=== PATIENT | male | born 1950 | race Caucasian/White ===

== ENCOUNTER 2019-11-02 07:17 | Outpatient (CLI) | payer MEDICARE, SELFPAY ==
[2019-11-02 07:32] LABS: Basophils Absolute Auto 0.05 K/mm3 (0.00-0.10); Basophils Percent Auto 0.6 % (0.0-1.0); Eosinophils Absolute Auto 0.32 K/mm3 (0.02-0.50); Eosinophils Percent Auto 3.9 % (1.0-6.0); Hematocrit 43.8 % (37.0-46.0); Hemoglobin 15.1 g/dL (12.4-15.3); Immature Granulocyte Absolute 0.02 K/mm3 (0.00-0.00); Immature Granulocyte Percent A 0.2 % (0.0-0.0); Lymphocytes Absolute Auto 2.81 K/mm3 (1.10-4.50); Lymphocytes Percent Auto 34.6 % (18.0-42.0); Mean Corpuscular HGB Conc 34.5 g/dL (32.0-36.0); Mean Corpuscular Hemoglobin 32.9 pg (27.0-31.0); Mean Corpuscular Volume 95.4 fL (78.0-102.0); Mean Platelet Volume 11.2 fl (8.7-11.0); Monocytes Absolute Auto 0.78 K/mm3 (0.10-0.90); Monocytes Percent Auto 9.6 % (2.0-11.0); Neutrophils Absolute Auto 4.1 K/mm3 (1.7-7.2); Neutrophils Percent Auto 51.1 % (50.0-70.0); Platelet Count Result 156 K/mm3 (150-420); Red Blood Count 4.59 M/mm3 (4.70-6.10); Red Cell Distribution Width 13.1 % (11.6-14.4); White Blood Count 8.1 K/mm3 (4.8-10.8)
[2019-11-02 08:54] LABS: Alanine Aminotransferase 24 U/L (16-63); Albumin Level 3.9 g/dL (3.4-5.0); Alkaline Phosphatase 50 U/L (46-116); Anion Gap 13.3 mmol/L (7-16); Aspartate Amino Transferase 16 U/L (15-37); Bilirubin,Total 0.3 mg/dL (0.00-1.00); Blood Urea Nitrogen 16 mg/dL (7-18); Calcium 8.7 mg/dL (8.5-10.1); Carbon Dioxide 28 mmol/L (21-32); Chloride 104 mmol/L (98-108); Estimated Glomerular Filt Rate > 60; Glucose 103 mg/dL (70-99); Osmolality Calculated 293 mOsm/kg (285-295); Potassium 4.3 mmol/L (3.5-5.1); Sodium 141 mmol/L (136-145); Thyroid Stimulating Hormone 4.67 uIU/mL (0.36-3.74); Total Protein 7.1 g/dL (6.4-8.2)
[2019-11-02 15:04] LABS: Free T4 Free Thyroxine 1.02 ng/dL (0.76-1.46)
[2019-11-05 04:05] LABS: FSH 8.3 mIU/mL (1.6-8.0); LH 1.8 mIU/mL (1.6-15.2)
== END 2019-11-02 07:18 | disposition home or self-care (01) ==
LOC: CHSLAB 07:20
PROVIDERS: PCP Family Medicine; Visit Provider Family Medicine
DX: N64.4 Mastodynia (principal); N62 Hypertrophy of breast; E03.9 Hypothyroidism, unspecified
CPT/HCPCS: 36415; 80053; 82040; 82670; 83001; 83002; 84270; 84403; 84439; 84443; 84702; 85025

== ENCOUNTER 2019-11-20 09:04 | Outpatient (CLI) | payer MEDICARE, SELFPAY | END 2019-11-20 09:05 | disposition home or self-care (01) | LOC: CHSIMG 09:06 | PROVIDERS: PCP Family Medicine; Visit Provider Family Medicine | DX: Z53.8 Procedure and treatment not carried out for other reasons (principal) | CPT/HCPCS: 99199 ==

== ENCOUNTER 2019-11-25 08:06 | Outpatient (CLI) | payer MEDICARE, SELFPAY ==
--- NOTE | ~2019-11-25 | US_ITS ---
EXAMINATION: US breast LT complete, US axilla LT DATE: 11/25/2019 09:04 (accession [id number]), 11/25/2019 09:03 (accession [id number]) INDICATION: Nipple pain TECHNIQUE: Grayscale and Doppler ultrasound images of the left breast and axilla were obtained. COMPARISON: 09/24/2019 diagnostic left digital mammogram FINDINGS: In the subareolar area of the left breast there is a 3.7 x 2.4 x 4.0 mm circumscribed mass. No internal vascularity is noted. No shadowing is evident. Ultrasound-guided biopsy is recommended. No left axillary mass lesion is evident.. IMPRESSION: BI-RADS Category 4: Suspicious abnormality; biopsy should be considered Recommendation: Ultrasound-guided biopsy of left subareolar [address] Vázquez telephoned the [facility] on 11/25/2019 at 0925 hours. The clinic was closed. Dr. Vázquez le ft a voicemail message for Dr. Vogt's nurse with the information concerning the 4 mm subareolar left breast mass and the recommendation for ultrasound-guided biopsy. Reviewed, dictated and finalized at [facility] Reviewed, dictated and finalized at [facility]. [employer] IMPRESSION: BI-RADS Category 4: Suspicious abnormality; biopsy should be consi dered Recommendation: Ultrasound-guided biopsy of left subareolar [address] Vázquez telephoned the [facility] on 11/25/2019 at 0925 hours. The clinic w as closed. Dr. Vázquez left a voicemail message for Dr. Vogt's nurse with the information concerning the 4 mm subareolar left breast mass and the recommenda tion for ultrasound-guided biopsy.
== END 2019-11-25 08:07 | disposition home or self-care (01) ==
LOC: CHSIMG 08:08
PROVIDERS: PCP Family Medicine; Visit Provider Family Medicine
DX: N64.4 Mastodynia (principal); M79.622 Pain in left upper arm
CPT/HCPCS: 76641; 76882

== ENCOUNTER 2020-10-21 08:07 | Outpatient (CLI) | payer MEDICARE, SELFPAY ==
[2020-10-21 08:26] LABS: Basophils Absolute Auto 0.04 K/mm3 (0.00-0.10); Basophils Percent Auto 0.5 % (0.0-1.0); Eosinophils Absolute Auto 0.32 K/mm3 (0.02-0.50); Eosinophils Percent Auto 4.1 % (1.0-6.0); Hematocrit 44.7 % (37.0-46.0); Hemoglobin 14.9 g/dL (12.4-15.3); Immature Granulocyte Absolute 0.02 K/mm3 (0.00-0.00); Immature Granulocyte Percent A 0.3 % (0.0-0.0); Lymphocytes Absolute Auto 2.59 K/mm3 (1.10-4.50); Lymphocytes Percent Auto 32.8 % (18.0-42.0); Mean Corpuscular HGB Conc 33.3 g/dL (32.0-36.0); Mean Corpuscular Hemoglobin 33.2 pg (27.0-31.0); Mean Corpuscular Volume 99.6 fL (78.0-102.0); Mean Platelet Volume 11.2 fl (8.7-11.0); Monocytes Absolute Auto 0.84 K/mm3 (0.10-0.90); Monocytes Percent Auto 10.6 % (2.0-11.0); Neutrophils Absolute Auto 4.1 K/mm3 (1.7-7.2); Neutrophils Percent Auto 51.7 % (50.0-70.0); Platelet Count Result 164 K/mm3 (150-420); Red Blood Count 4.49 M/mm3 (4.70-6.10); Red Cell Distribution Width 13.2 % (11.6-14.4); White Blood Count 7.9 K/mm3 (4.8-10.8)
[2020-10-21 10:01] LABS: Alanine Aminotransferase 25 U/L (16-63); Alkaline Phosphatase 52 U/L (46-116); Anion Gap 6 mmol/L (8-16); Aspartate Amino Transferase 11 U/L (15-37); Bilirubin,Total 0.4 mg/dL (0.00-1.00); Blood Urea Nitrogen 18 mg/dL (7-18); Calcium 8.8 mg/dL (8.5-10.1); Carbon Dioxide 33 mmol/L (21-32); Chloride 105 mmol/L (98-108); Cholesterol 148 mg/dL (0-200); Estimated Glomerular Filt Rate > 60; Glucose 100 mg/dL (70-99); HDL Direct 45 mg/dL (40-60); LDL Cholesterol Calculated 94 mg/dL (<130); Osmolality Calculated 299 mOsm/kg (285-295); Potassium 4.4 mmol/L (3.5-5.1); Sodium 144 mmol/L (136-145); Total Protein 7.4 g/dL (6.4-8.2); Triglycerides 47 mg/dL (0-150)
== END 2020-10-21 08:08 | disposition home or self-care (01) ==
LOC: CHSLAB 08:16
PROVIDERS: PCP Family Medicine; Visit Provider Family Medicine
DX: E78.2 Mixed hyperlipidemia (principal); K92.1 Melena; I10 Essential (primary) hypertension; Z13.29 Encounter for screening for other suspected endocrine disorder
CPT/HCPCS: 36415; 80053; 80061; 84443; 85025

== ENCOUNTER 2021-08-28 12:47 | Outpatient (CLI) | payer MEDICARE, SELFPAY ==
[2021-08-28 13:55] LABS: SARS-CoV-2 RNA PCR Positive (Negative)
== END 2021-08-28 12:48 | disposition home or self-care (01) ==
LOC: CHSLAB 12:50
PROVIDERS: PCP Family Medicine; Visit Provider Family Medicine
DX: U07.1 COVID-19 (principal); J00 Acute nasopharyngitis [common cold]
CPT/HCPCS: C9803; U0003; U0005

== ENCOUNTER 2021-08-29 14:06 | Outpatient (CLI) | payer MEDICARE, SELFPAY ==
--- NOTE | 2021-08-29 14:26 | PC.NURSE ---
Pt to room 227 amb. A&Ox3. Regeneron infusion explained. Pt signed consent. Oriented to room. Call rubin in reach. Patient has no complaints or concerns. Reminded to call with needs.
[2021-08-29 14:43] VITALS: BP 128/66; PULSE 60; RESP 20; TEMP 36.6; O2SAT 96
[2021-08-29] MEDS: diphenhydrAMINE HCl CAP 25 MG CAPSULE PO (14:46)
[2021-08-29] MEDS: ACETAMINOPHEN 325 MG TABLET 650 MG PO (14:46)
[2021-08-29] MEDS: FAMOTIDINE 20 MG TABLET PO (14:46)
--- NOTE | 2021-08-29 16:22 | PC.NURSE ---
Pt discharged to home amb without complaint.
== END 2021-08-29 14:07 | disposition home or self-care (01) ==
LOC: CHSLAB 14:11 → CHSTREATRM 14:14
PROVIDERS: PCP Family Medicine; Visit Provider Family Medicine
DX: U07.1 COVID-19 (principal)
CPT/HCPCS: A9270; J7050; M0243; Q0244

== ENCOUNTER 2021-12-29 12:25 | Outpatient (CLI) | payer MEDICARE, SELFPAY ==
--- NOTE | ~2021-12-29 | XR_ITS ---
EXAMINATION: XR abdomen obstructive series EXAM DATE: 12/29/2021 13:21 INDICATION: Generalized abdominal pain x 1 month. TECHNIQUE: Frontal upright projection of the upper abdomen, frontal projection of the lower abdomen f or interpretation. There is no prior study for comparison. FINDINGS: There is moderate amount of colonic stool and gas. No small bowel dilation, nonobstructiv e bowel gas pattern. Calcifications in the pelvis are believed to be phleboliths. There is no orga nomegaly suspected. There is moderate to severe lower lumbar spondylosis. Mild lumbar dextroscoliosi s. There is no free intraperitoneal air. The lung bases are clear. IMPRESSION: Moderate amount of colonic stool and gas. No obstruction. Reviewed, dictated and finalized at [facility].
== END 2021-12-29 12:26 | disposition home or self-care (01) ==
LOC: CHSIMG 12:28
PROVIDERS: PCP Family Medicine; Visit Provider Family Medicine
DX: R10.84 Generalized abdominal pain (principal)
CPT/HCPCS: 74019

== ENCOUNTER 2022-07-03 10:40 | Day surgery (SDC) | payer MEDICARE, SELFPAY ==
[2022-06-20 13:43] VITALS: BMI 31.6
--- NOTE | 2022-07-03 10:54 | WPDANESEPPF ---
Anes - Initial Pre Proc Eval Procedure: Operation Date: 07/03/22 13:30 Proposed Procedures p Esophagogastroduodenoscopy - Omar Ramos MD s Diagnostic Colonoscopy - Omar Ramos MD Date/Time: 07/03/22 10:54 Surgeon: Omar Ramos MD Pre Op Diagnosis: dysphagia and nausea, change in bowel habits Patient Data Age: 71 Gender: M Height: 1.78 m Weight: 100 kg Allergies Allergy/AdvReac Type Severity Reaction Status Date / Time No Known Allergies Allergy Verified 07/03/22 11:08 Home Medications Medication Instructions Recorded Confirmed Type latanoprost 0.005 % eye drops 1 drp EACH EYE DAILY 02/15/22 06/20/22 History (Xalatan) lovastatin 10 mg tablet 10 mg PO DAILY 02/15/22 06/20/22 History timolol maleate 0.5 % eye drops 1 drp EACH EYE .prn 02/15/22 06/20/22 History sodium sul 1.479 gram-potas ch See Rx Instructions PO PER PKG DIR 03/07/22 Rx 0.188 gram-magnes sul 0.225 gram #24 tabs tablet (Sutab) Patient hx anesthesia problems: none Family hx anesthesia problems: none Results Review: All pre-operative results and documents have been reviewed as part of the pre-operative evaluation. [facility] Past Medical History Medical History Arthritis Basal cell carcinoma of skin Benign tumor of breast Fracture, ankle Glaucoma Hyperlipemia Obesity Social History Social History Smoking packs per day: 2 Smoking cigarettes per day: 40.0 Years smoked: 50 Smoking pack-years: 100.00 Smoking status: Current every day smoker Tobacco type: cigarettes Alcohol intake: current Drinks per week: 2 Substance use: never Substance use type: does not use Living arrangements: with family Spiritual care concerns: No Anes - Eval Final PreProcedure Day of Procedure 07/03/22 10:54 Patient weight: obese Heart: regular rate and rhythm Lungs: decreased breath sounds Airway: Mallampati scale class II Neurological: alert and oriented Last oral intake: >/= 8 hours ASA classification: III Emergent: no Anesthetic plan: proceed Anesthesia type and monitoring: general GIVS and standard monitoring Results Review: All pre-operative results and documents have been reviewed as part of the pre-operative evaluation. Informed Consent: The patient's anesthetic plan and its attendant risks and benefits were discussed with the patient/family/POA. Questions were solicited and answers provided to the satisfaction of the patient/family/POA.
[2022-07-03 11:00] VITALS: BP 167/77; PULSE 62; RESP 16; TEMP 37.2; O2SAT 98
[2022-07-03 11:10] VITALS: BMI 31.9
[2022-07-03] MEDS: LACTATED RINGERS 1,000 ML 150 ML IV CONT (11:13)
--- NOTE | 2022-07-03 11:32 | PM.HPGS ---
History of Present Illness History of Present Illness Consent: Risks, benefits, and alternatives have been discussed and questions answered. Patient agrees to proceed with procedure. Chief complaint: dysphagia and nausea, change in bowel habits Narrative: Rikki Fisher is a 71 year old male with constipation for few months, last colonoscopy 2013, also intermittent dysphagia and gerd but currently not using ppi Review of Systems Constitutional: Constitutional: Denies headache(s) and Denies weakness Eyes: Eyes: Denies blurry vision ENT: Reports Normal hearing present, Denies headache(s) and Denies neck pain Cardiovascular: Cardiovascular: Denies chest pain and Denies dyspnea Respiratory: Respiratory: Denies dyspnea Gastrointestinal: Gastrointestinal: Reports no additional gastrointestinal complaints Genitourinary: Genitourinary: Denies dysuria Musculoskeletal: Musculoskeletal: Denies neck pain Integumentary/Breasts: Skin/Breast: Denies dry skin Neurologic: Reports Normal hearing present, Denies headache(s) and Denies weakness Psychiatric: Psychiatric: Denies anxiety Endocrine: Endocrine: Denies change in body appearance Hematologic/Lymphatic: Hematologic/Lymphatic: Denies easy bleeding Allergic/Immunologic: Allergic/Immunologic: Denies urticaria PMFSH Past Medical History Medical History (Updated 07/03/22 @ 11:35 by Omar Ramos MD) Arthritis Basal cell carcinoma of skin Benign tumor of breast Constipation Fracture, ankle Glaucoma Hyperlipemia Obesity Social History Social History Smoking packs per day: 2 Smoking cigarettes per day: 40.0 Years smoked: 50 Smoking pack-years: 100.00 Smoking status: Current every day smoker Tobacco type: cigarettes Alcohol intake: current Drinks per week: 2 Substance use: never Substance use type: does not use Living arrangements: with family Spiritual care concerns: No Meds Home Medications and Allergies Home Medications Medication Instructions Recorded Confirmed Type latanoprost 0.005 % eye drops 1 drp EACH EYE DAILY 02/15/22 07/03/22 History (Xalatan) lovastatin 10 mg tablet 10 mg PO DAILY 02/15/22 07/03/22 History timolol maleate 0.5 % eye drops 1 drp EACH EYE .prn 02/15/22 07/03/22 History sodium sul 1.479 gram-potas ch See Rx Instructions PO PER PKG DIR 03/07/22 07/03/22 Rx 0.188 gram-magnes sul 0.225 gram #24 tabs tablet (Sutab) Allergies Allergy/AdvReac Type Severity Reaction Status Date / Time No Known Allergies Allergy Verified 07/03/22 11:08 Vital Signs Vital Signs - 24 hr 07/03/22 11:00 Temperature 98.9 F Pulse Rate 62 Respiratory Rate 16 Blood Pressure 167/77 H Pulse Oximetry 98 Oxygen Delivery Room Air Exam Const: General: comfortable and no acute distress HENMT: Face/Nose/Sinus: Normal nares present Eyes: General: appearance normal, both eyes and all related structures Neck: Neck: no JVD Resp: Auscultation: clear to auscultation bilaterally Cardio: Rate: regular rate Rhythm: regular rhythm GI: Inspection: non-distended GI Palp: Yes Soft to palpation Skin: General skin exam: normal color Neuro: General: gait normal Speech: normal speech Extrem: General: normal to inspection Psych: Mental Status: mental status grossly normal Assessment and Plan Assessment and plan (1) GERD (gastroesophageal reflux disease): Code(s): K21.9 - Gastro-esophageal reflux disease without esophagitis Status: Acute Assessment and Plan: egd with bx (2) Constipation: Code(s): K59.00 - Constipation, unspecified Status: Acute Assessment and Plan: colonoscopy
[2022-07-03 12:05] VITALS: BP 141/78; PULSE 57; RESP 14; O2SAT 98
[2022-07-03 12:10] VITALS: BP 143/70; PULSE 55; RESP 14; O2SAT 97
[2022-07-03 12:15] VITALS: BP 139/71; PULSE 58; RESP 14; O2SAT 99
--- NOTE | 2022-07-03 12:31 | WPDANESPN ---
Anes - Prog Note Post-Op Date/Time: 07/03/22 12:31 Cardiovascular status: normal Respiratory status: normal Airway patency: baseline Mental status: baseline Post-Op hydration status: normal Vital Signs: Last Vital Signs Temp 37.2 C 07/03/22 11:00 Pulse 58 L 07/03/22 12:15 Resp 14 07/03/22 12:15 BP 139/71 07/03/22 12:15 Pulse Ox 99 07/03/22 12:15 O2 Del Method Room Air 07/03/22 12:15 Pain Score (VAS): 0 I/O: Intake & Output 07/02/22 07/03/22 07/03/22 23:59 07:59 15:59 Intake Total 600 Balance 600 Patient Feedback: Patient satisfied with anesthetic care.
== END 2022-07-03 12:43 | disposition home or self-care (01) ==
PROVIDERS: PCP Family Medicine; Visit Provider Internal Medicine Gastroenterology
PROC: 0DJ08ZZ Inspection of Upper Intestinal Tract, Via Natural or Artificial Opening Endoscopic (ICD-10-PCS; CPT 43235; principal; 2022-07-03 13:30)
PROC: 0DJD8ZZ Inspection of Lower Intestinal Tract, Via Natural or Artificial Opening Endoscopic (ICD-10-PCS; CPT 45378; 2022-07-03 13:30)
DX: K21.9 Gastro-esophageal reflux disease without esophagitis (principal)
CPT/HCPCS: 45385; 43239

== ENCOUNTER 2022-07-03 13:00 | Outpatient (NON) | payer MEDICARE, SELFPAY | END 2022-07-03 13:01 | disposition home or self-care (01) | LOC: ANHLAB 07-04 08:07 | PROVIDERS: PCP Family Medicine; Visit Provider Internal Medicine Gastroenterology | DX: K21.9 Gastro-esophageal reflux disease without esophagitis (principal); K59.00 Constipation, unspecified | CPT/HCPCS: 88305 ==

== ENCOUNTER 2022-07-10 13:33 | Outpatient (CLI) | payer MEDICARE, SELFPAY | END 2022-07-10 13:34 | disposition home or self-care (01) | LOC: CHSLAB 13:34 | PROVIDERS: PCP Specialist; Visit Provider Specialist | DX: C44.329 Squamous cell carcinoma of skin of other parts of face (principal); C44.219 Basal cell carcinoma of skin of left ear and external auricular canal | CPT/HCPCS: 88305 ==

== ENCOUNTER 2023-02-11 13:58 | Outpatient (CLI) | payer MEDICARE, SELFPAY ==
--- NOTE | ~2023-02-11 | XR_ITS ---
EXAMINATION: XR chest 2V DATE: 02/11/2023 14:19 INDICATION: Acute cough. Congestion. TECHNIQUE: Frontal and lateral views of the chest were obtained on 3 radiographs. COMPARISON: Chest CT 01/05/2019 FINDINGS: There is mild atelectasis in left lower lung zone. No pleural effusion or pneumothorax. The heart size is normal. IMPRESSION: 1. Mild atelectasis in left lower lung zone. Reviewed, dictated and finalized at [facility].
== END 2023-02-11 13:59 | disposition home or self-care (01) ==
LOC: CHSIMG 14:00
PROVIDERS: PCP Family Medicine; Visit Provider Family Medicine
DX: R05.1 Acute cough (principal); J98.11 Atelectasis
CPT/HCPCS: 71046

== ENCOUNTER 2023-03-12 13:24 | Outpatient (CLI) | payer MEDICARE, SELFPAY | END 2023-03-12 13:25 | disposition home or self-care (01) | PROVIDERS: PCP Family Medicine; Visit Provider Specialist | DX: L73.9 Follicular disorder, unspecified (principal) | CPT/HCPCS: 87070; 87205 ==

== ENCOUNTER 2023-04-15 11:42 | Outpatient (CLI) | payer MEDICARE, SELFPAY ==
--- NOTE | ~2023-04-15 | XR_ITS ---
AP and oblique views of the right ribs Clinical History: Pain Findings: There is a minimally displaced fracture at the anterior right seventh rib. Lungs are clear, without focal consolidation or pleural effusion. Cardiomediastinal contour is within normal limits. Soft tissues are unremarkable. Impression: Minimally displaced fracture at the anterior right seventh rib. Reviewed, dictated and finalized at [facility]. Impression: Minimally displaced fracture at the anterior right seventh rib.
== END 2023-04-15 11:43 | disposition home or self-care (01) ==
LOC: CHSIMG 11:48
PROVIDERS: PCP Physician Assistant; Visit Provider Physician Assistant
DX: R07.81 Pleurodynia (principal); S22.31XA Fracture of one rib, right side, initial encounter for closed fracture
CPT/HCPCS: 71101

== ENCOUNTER 2024-06-23 16:23 | Outpatient (CLI) | payer MEDICARE, SELFPAY | END 2024-06-23 16:24 | disposition home or self-care (01) | PROVIDERS: PCP Physician Assistant; Visit Provider Specialist | DX: L57.0 Actinic keratosis (principal) | CPT/HCPCS: 88305 ==

== ENCOUNTER 2024-12-03 10:05 | Outpatient (CLI) | payer MEDICARE, SELFPAY ==
--- OUTSIDE RECORDS SUMMARY | 2024-12-03 11:40 | XMS_ITS | Data Portability ---
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 Plan of Treatment Reminders Order Date Submit Date Provider Last Modified By Organization Details Last Modified Time Details Appointments None recorded. Lab CBC 2024 025 [facility], [address] [facility], [facility], [place], [address], 5 09:15:58 CMP, serum or plasma 2024 025 [facility], [address] [facility], [facility], [place], [address], 5 09:15:54 lipid panel, serum 2024 025 [facility], [address] [facility], [facility], [place], [address], 5 09:15:53 HbA1c (hemoglobi n A1c), blood 2024 025 [facility] In-Office Order, Internal Use Only DO Not Attach Compendium DO Not Attach Compendium, Do Not Delete/merge, [id number] 5 13:25:29 PSA, total, serum or plasma 2024 025 [facility], [address] [facility], [facility], [place], [address], 5 09:15:57 drug screen, urine 2024 025 [facility] In-Office Order, Internal Use Only DO Not Attach Compendium DO Not Attach Compendium, Do Not Delete/merge, [id number] 5 13:51:22 PSA, total, serum or plasma 2022 023 [facility], [address] [facility], [address], [place], [address], 3 11:12:50 CBC 2022 023 [facility], [address] [facility], [facility], [place], [address], 3 06:14:44 CMP, serum or plasma 2022 023 [facility], [address] [facility], [facility], [place], [address], 3 06:14:43 lipid panel, serum 2022 023 [facility], [address] [facility], [facility], [place], [address], 3 06:14:42 HbA1c (hemoglobi n A1c), blood 2022 023 [facility] In-Office Order, Internal Use Only DO Not Attach Compendium DO Not Attach Compendium, Do Not Delete/merge, [id number] 3 15:10:[address] referral 2022 023 KAROL Torres MD, [address] [place], [address], 3 09:38:46 Procedures None recorded. Surgeries None recorded. Imaging electromyo gram + nerve conduction study 2023 024 [facility], [address] [place], [address], 4 10:19:27 XR, ribs, unilateral , w/ PA chest [address] [facility]), [address] [place], [address], 17:57:52 Medication Orders lovastatin 10 mg tablet 2024 025 [facility], [address] [place], [address], 5 12:30:08 omeprazole 20 mg capsule,de layed release 2024 025 [facility], [address] [place], [address], 5 12:30:08 naproxen 500 mg tablet 2022 023 [facility], [address] [place], [address], 12:12:22 Patient TargetsNo targets recorded. Patient Instructions Encounter Date Encounter Id Patient Instructions Last Modified By Organization Details Last Modified Time 02/20/2023 [id number] A healthy lifestyle: care instructions ey Not available 02/20/2023 14:49:48 lightheadedness or faintness: care instructions jney Not available 02/20/2023 14:49:48 01/15/2024 [id number] carpal tunnel syndrome: care instructions jnanney Not available 01/15/2024 11:55:18 carpal tunnel syndrome: exercises jnanney Not available 01/15/2024 11:55:18 11/09/2024 [id number] A healthy lifestyle: care [facility] Not available 11/09/2024 12:30:08 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 Referring Physician: Thien Arzate, Family Medicine, Encounter Date: 02/20/2023 Results Created Date Observation Date Name Description Value Unit Range Abnormal Flag Note LastModifiedBy Organization Detail LastModifiedTime 02/21/20 23 02/20/2023 LIPID PANEL cholesterol, total 166.7 mg/dL 140.0- 200.0 Not Available [facility] ([facility]) [address] [facility] [place], [address], 02/21/2023 06:14:42 02/21/20 23 02/20/2023 LIPID PANEL triglyceride s 81 mg/dL <=150 Not Available [facility] ([facility]) [address] [facility] [place], [address], 02/21/2023 06:14:42 02/21/20 23 02/20/2023 LIPID PANEL HDL cholesterol 44.6 mg/dL 40.0-1 00.0 Not Available [facility] ([facility]) [address] [facility] [place], [address], 02/21/2023 06:14:42 02/21/20 23 02/20/2023 LIPID PANEL VLDL cholesterol omaira 16.20 mg/dL 5.00-4 0.00 Not Available [facility] ([facility]) [address] [place], [address], 02/21/2023 06:14:42 02/21/20 23 02/20/2023 LIPID PANEL LDL chol calc ([facility]) 106.8 mg/dL 0.0-99 .0 above high normal Not Available [facility] ([facility]) [address] [place], [address], 02/21/2023 06:14:42 02/21/2002/20/2023 COMP. METAB OLIC PANEL (14) glucose 101 mg/dL 65-99 above high normal ANION GP 15.0 mmol/ L N OSMOL 279.0 mOsM/ L N REFER ENCE RANGE : 275.0 -301. 0 Not Available [facility] ([facility]) [address] [place], [address], 02/21/2023 06:14:42 02/21/20 23 02/20/2023 COMP. METAB OLIC PANEL (14) BUN 21 mg/dL 8-26 Not Available [facility] ([facility]) [address] [facility] [place], [address], 02/21/2023 06:14:42 02/21/20 23 02/20/2023 COMP. METAB OLIC PANEL (14) creatinine 0.88 mg/dL 0.50-1 .40 Not Available [facility] ([facility]) [address] [place], [address], 02/21/2023 06:14:42 02/21/20 23 02/20/2023 COMP. METAB OLIC PANEL (14) eGFR 91 mL/mi n/1.7 3 >=60 Not Available [facility] ([facility]) [address] [place], [address], 02/21/2023 06:14:42 02/21/20 23 02/20/2023 COMP. METAB OLIC PANEL (14) BUN/creatini ne ratio 23.8 Not Available [facility] ([facility]) [address] [place], [address], 02/21/2023 06:14:42 02/21/20 23 02/20/2023 COMP. METAB OLIC PANEL (14) sodium 138.0 mmol/ L 136.0- 144.0 Not Available [facility] ([facility]) [address] [place], [address], 02/21/2023 06:14:42 02/21/20 23 02/20/2023 COMP. METAB OLIC PANEL (14) potassium 4.6 mmol/ L 3.5-5. 3 Not Available [facility] ([facility]) [address] [place], [address], 02/21/2023 06:14:42 02/21/20 23 02/20/2023 COMP. METAB OLIC PANEL (14) chloride 104 mmol/ l 101-11 1 Not Available [facility] ([facility]) [address] [place], [address], 02/21/2023 06:14:42 02/21/20 23 02/20/2023 COMP. METAB OLIC PANEL (14) carbon dioxide, total 23.7 mmol/ L 21.0-3 2.0 Not Available [facility] ([place] [facility]) [address] [facility], [place], [address], 02/21/2023 06:14:42 02/21/20 23 02/20/2023 COMP. METAB OLIC PANEL (14) calcium 9.7 mg/dL 8.2-10 .0 Not Available [facility] ([place] [facility]) [address] [facility], [place], [address], 02/21/2023 06:14:42 02/21/20 23 02/20/2023 COMP. METAB OLIC PANEL (14) protein, total 7.0 g/dL 6.7-8. 2 Not Available [facility] ([place] [facility]) [address] [facility] [place], [address], 02/21/2023 06:14:42 02/21/20 23 02/20/2023 COMP. METAB OLIC PANEL (14) albumin 4.3 g/dL 3.5-5. 5 Not Available [facility] ([place] [facility]) [address] [facility], [place], [address], 02/21/2023 06:14:42 02/21/20 23 02/20/2023 COMP. METAB OLIC PANEL (14) globulin, total 2.7 g/dL 1.5-4. 5 Not Available [facility] ([place] [facility]) [address] [facility], [place], [address], 02/21/2023 06:14:42 02/21/20 23 02/20/2023 COMP. METAB OLIC PANEL (14) A/G ratio 1.7 Not Available [facility] ([place] [facility]) [address] [facility], [place], [address], 02/21/2023 06:14:42 02/21/20 23 02/20/2023 COMP. METAB OLIC PANEL (14) bilirubin, total 0.4 mg/dL 0.0-1. 2 Not Available [facility] ([facility]) [address] [place], [address], 02/21/2023 06:14:42 02/21/20 23 02/20/2023 COMP. METAB OLIC PANEL (14) alkaline phosphatase 62.4 IU/L 42.0-1 21.0 Not Available [facility] ([facility]) [address], [place], [address], 02/21/2023 06:14:42 02/21/20 23 02/20/2023 COMP. METAB OLIC PANEL (14) AST (SGOT) 18.4 U/L 10.0-4 2.0 Not Available [facility] ([facility]) [address], [place], [address], 02/21/2023 06:14:42 02/21/20 23 02/20/2023 COMP. METAB OLIC PANEL (14) ALT (SGPT) 17.0 U/L 10.0-6 0.0 Not Available [facility] ([facility]) [address] [facility], [place], [address], 02/21/2023 06:14:42 02/21/20 23 02/20/2023 CBC, PLATE LET, NO DIFFE RENTI AL WBC 9.0 K/uL 3.4-10 .8 Not Available [facility] ([facility]) [address] [facility] [place], [address], 02/21/2023 06:14:44 02/21/2002/20/2023 CBC, PLATE LET, NO DIFFE RENTI AL RBC 4.7 M/uL 4.5-6. 3 Not Available [facility] ([facility]) [address] [facility], [place], [address], 02/21/2023 06:14:44 02/21/2002/20/2023 CBC, PLATE LET, NO DIFFE RENTI AL hemoglobin 15.3 g/dL 13.5-1 7.5 Not Available [facility] ([facility]) [address] [facility], [place], [address], 02/21/2023 06:14:44 02/21/20 23 02/20/2023 CBC, PLATE LET, NO DIFFE RENTI AL hematocrit 46.4 % 40.0-5 2.0 Not Available [facility] ([facility]) [address] [facility], [place], [address], 02/21/2023 06:14:44 02/21/2002/20/2023 CBC, PLATE LET, NO DIFFE RENTI AL MCV 98 fL 80-95 above high normal Not Available [facility] ([facility]) [address] [facility], [place], [address], 02/21/2023 06:14:44 02/21/2002/20/2023 CBC, PLATE LET, NO DIFFE RENTI AL MCH 32 pg 27-32 Not Available [facility] ([facility]) [address] [place], [address], 02/21/2023 06:14:44 02/21/2002/20/2023 CBC, PLATE LET, NO DIFFE RENTI AL MCHC 33 g/dL 32-36 Not Available [facility] ([facility]) [address] [place], [address], 02/21/2023 06:14:44 02/21/2002/20/2023 CBC, PLATE LET, NO DIFFE RENTI AL RDW 13.1 % 11.5-1 4.5 Not Available [facility] ([facility]) [address] [place], [address], 02/21/2023 06:14:44 02/21/2002/20/2023 CBC, PLATE LET, NO DIFFE RENTI AL platelets 214 K/uL 155-37 9 MPV 12.1 FL 8.9-1 2.7 N Not Available [facility] ([facility]) [address] [facility], [place], [address], 02/21/2023 06:14:44 02/21/20 23 02/20/2023 CBC, PLATE LET, NO DIFFE RENTI AL NRBC 0 % Not Available [facility] ([facility]) [address] [facility], [place], [address], 02/21/2023 06:14:44 02/21/20 23 02/21/2023 CARDI OVASC ULAR REPOR T interpretati on Note Suppl lilli flores repor t is avail able. Not Available [facility] ([facility]) [address] [facility], [place], [address], 02/21/2023 06:14:43 02/21/2002/21/2023 CARDI OVASC ULAR REPOR T pdf . Not Available [facility] ([facility]) [address] [facility], [place], [address], 02/21/2023 06:14:43 02/21/2002/20/2023 HbA1c (hemo globi n A1c), blood HbA1c 5.7 Not Available In-Office Order Internal Use Only DO Not Attach Compendium DO Not Attach Compendium, Do Not Delete/merge, [id number] 02/20/2023 14:47:54 03/06/2003/07/2023 PROST ATE-S PECIF IC AG prostate specific Ag 1.9 NG/mL 0.0-4. 0 [facility] ECL[facility] metho dolog y. Accor ding to the Ameri can Urolo gical Assoc iatio n, Serum PSA shoul d decre ase and remai n at undet ectab le level s after radic al prost atect shazia. The AUA defin es bioch emica l recur rence as an initi al PSA value 0.2 ng/mL or great er follo wed by a subse quent confi rmato ry PSA value 0.2 ng/mL or great er. Value s obtai mario with diffe rent assay metho ds or kits canno t be used inter vitor abdalla . Resul ts canno t be inter prete d as absol tonawanda evide nce of the prese nce or absen ce of yusef burns . Not Available [facility] ([facility]) [address] [facility], [place], [address], 03/07/2023 11:12:50 11/09/19 25 11/10/2024 LIPID PANEL cholesterol, total 164 mg/dL 100-19 9 Not Available [address], [address], 11/10/2024 09:15:53 11/09/19 25 11/10/2024 LIPID PANEL triglyceride s 42 mg/dL 0-149 Not Available [address], [address], 11/10/2024 09:15:53 11/09/19 25 11/10/2024 LIPID PANEL HDL cholesterol 47 mg/dL >39 Not Available [address], [address], 11/10/2024 09:15:53 11/09/19 25 11/10/2024 LIPID PANEL VLDL cholesterol omaira 9 mg/dL 5-40 Not Available [address], [address], 11/10/2024 09:15:53 11/09/19 25 11/10/2024 LIPID PANEL LDL chol calc ([facility]) 108 mg/dL 0-99 above high normal Not Available [id number] [place], [address], 11/10/2024 09:15:53 11/09/19 25 11/10/2024 COMP. METAB OLIC PANEL (14) glucose 104 mg/dL 70-99 above high normal Not Available [address], [address], 11/10/2024 09:15:54 11/09/19 25 11/10/2024 COMP. METAB OLIC PANEL (14) BUN 19 mg/dL 8-27 Not Available [address], [address], 11/10/2024 09:15:54 11/09/19 25 11/10/2024 COMP. METAB OLIC PANEL (14) creatinine 0.93 mg/dL 0.76-1 .27 Not Available [address], [address], 11/10/2024 09:15:54 11/09/19 25 11/10/2024 COMP. METAB OLIC PANEL (14) eGFR 86 mL/mi n/1.7 3 >59 Not Available [address], [address], 11/10/2024 09:15:54 11/09/19 25 11/10/2024 COMP. METAB OLIC PANEL (14) BUN/creatini ne ratio 20 10-24 Not Available [address], [address], 11/10/2024 09:15:54 11/09/19 25 11/10/2024 COMP. METAB OLIC PANEL (14) sodium 139 mmol/ L 134-14 4 Not Available [address], [address], 11/10/2024 09:15:54 11/09/19 25 11/10/2024 COMP. METAB OLIC PANEL (14) potassium 4.8 mmol/ L 3.5-5. 2 Not Available [address], [address], 11/10/2024 09:15:54 11/09/19 25 11/10/2024 COMP. METAB OLIC PANEL (14) chloride 103 mmol/ L 96-106 Not Available [address], [address], 11/10/2024 09:15:54 11/09/19 25 11/10/2024 COMP. METAB OLIC PANEL (14) carbon dioxide, total 27 mmol/ L 20-29 Not Available [address], [address], 11/10/2024 09:15:54 11/09/19 25 11/10/2024 COMP. METAB OLIC PANEL (14) calcium 9.3 mg/dL 8.6-10 .2 Not Available [address], [address], 11/10/2024 09:15:54 11/09/19 25 11/10/2024 COMP. METAB OLIC PANEL (14) protein, total 6.8 g/dL 6.0-8. 5 Not Available [address], [address], 11/10/2024 09:15:54 11/09/19 25 11/10/2024 COMP. METAB OLIC PANEL (14) albumin 4.3 g/dL 3.8-4. 8 Not Available [address], [address], 11/10/2024 09:15:54 11/09/19 25 11/10/2024 COMP. METAB OLIC PANEL (14) globulin, total 2.5 g/dL 1.5-4. 5 Not Available [address], [address], 11/10/2024 09:15:54 11/09/19 25 11/10/2024 COMP. METAB OLIC PANEL (14) bilirubin, total 0.5 mg/dL 0.0-1. 2 Not Available [address], [address], 11/10/2024 09:15:54 11/09/19 25 11/10/2024 COMP. METAB OLIC PANEL (14) alkaline phosphatase 56 IU/L 44-121 Not Available [address], [address], 11/10/2024 09:15:54 11/09/19 25 11/10/2024 COMP. METAB OLIC PANEL (14) AST (SGOT) 18 IU/L 0-40 Not Available [address], [address], 11/10/2024 09:15:54 11/09/19 25 11/10/2024 COMP. METAB OLIC PANEL (14) ALT (SGPT) 17 IU/L 0-44 Not Available [address], [address], 11/10/2024 09:15:54 11/09/19 25 11/10/2024 CARDI OVASC ULAR REPOR T interpretati on Note Suppl lilli al repor t is avail able. Not Available [address], [address], 11/10/2024 09:15:56 11/09/19 25 11/10/2024 CARDI OVASC ULAR REPOR T pdf . Not Available [address], [address], 11/10/2024 09:15:56 11/09/19 25 11/10/2024 PROST ATE-S PECIF IC AG prostate specific Ag 1.7 NG/mL 0.0-4. 0 Rogelio ECLIA metho dolog y. Accor shakeel to the Ameri can Urolo gical Assoc iatio n, Serum PSA shoul d decre ase and remai n at undet ectab le level s after radic al prost atect shazia. The AUA defin es bioch emica l recur rence as an initi al PSA value 0.2 ng/mL or great er follo wed by a subse quent confi rmato ry PSA value 0.2 ng/mL or great er. Value s obtai mario with diffe rent assay metho ds or kits canno t be used inter adler eably . Resul ts canno t be inter prete d as absol tonawanda evide nce of the prese nce or absen ce of yusef burns se. Not Available [address], [address], 11/10/2024 09:15:56 11/09/1911/10/2024 CBC, PLATE LET, NO DIFFE RENTI AL WBC 7.7 x10e3 /uL 3.4-10 .8 Not Available [address], [address], 11/10/2024 09:15:58 11/09/1911/10/2024 CBC, PLATE LET, NO DIFFE RENTI AL RBC 4.55 x10e6 /uL 4.14-5 .80 Not Available [address], [address], 11/10/2024 09:15:58 11/09/1911/10/2024 CBC, PLATE LET, NO DIFFE RENTI AL hemoglobin 15.1 g/dL 13.0-1 7.7 Not Available [address], [address], 11/10/2024 09:15:58 11/09/1911/10/2024 CBC, PLATE LET, NO DIFFE RENTI AL hematocrit 44.1 % 37.5-5 1.0 Not Available [address], [address], 11/10/2024 09:15:58 11/09/19 25 11/10/2024 CBC, PLATE LET, NO DIFFE RENTI AL MCV 97 fL 79-97 Not Available [address], [address], 11/10/2024 09:15:58 11/09/19 25 11/10/2024 CBC, PLATE LET, NO DIFFE RENTI AL MCH 33.2 pg 26.6-3 3.0 above high normal Not Available [address], [address], 11/10/2024 09:15:58 11/09/1911/10/2024 CBC, PLATE LET, NO DIFFE RENTI AL MCHC 34.2 g/dL 31.5-3 5.7 Not Available [address], [address], 11/10/2024 09:15:58 11/09/19 25 11/10/2024 CBC, PLATE LET, NO DIFFE RENTI AL RDW 12.6 % 11.6-1 5.4 Not Available [address], [address], 11/10/2024 09:15:58 11/09/19 25 11/10/2024 CBC, PLATE LET, NO DIFFE RENTI AL platelets 169 x10e3 /uL 150-45 0 Not Available [address], [address], 11/10/2024 09:15:58 11/09/19 25 11/09/2024 drug scree n, urine Methamphetam ine Negati ve Not Available In-Office Order Internal Use Only DO Not Attach Compendium DO Not Attach Compendium, Do Not Delete/merge, [id number] 11/09/2024 12:30:07 11/09/19 25 11/09/2024 drug scree n, urine THC Positi ve Not Available In-Office Order Internal Use Only DO Not Attach Compendium DO Not Attach Compendium, Do Not Delete/merge, 11/09/2024 12:30:07 11/09/19 25 11/09/2024 drug scree n, urine Cocaine (Lara) Negati ve Not Available In-Office Order Internal Use Only DO Not Attach Compendium DO Not Attach Compendium, Do Not Delete/merge, 11/09/2024 12:30:07 11/09/19 25 11/09/2024 drug scree n, urine Benzodiazepi ne (Bzo) Negati ve Not Available In-Office Order Internal Use Only DO Not Attach Compendium DO Not Attach Compendium, Do Not Delete/merge, 11/09/2024 12:30:07 11/09/19 25 11/09/2024 drug scree n, urine Methadone (Mtd) Negati ve Not Available In-Office Order Internal Use Only DO Not Attach Compendium DO Not Attach Compendium, Do Not Delete/merge, 11/09/2024 12:30:07 11/09/19 25 11/09/2024 drug scree n, urine Buprenorphin e (Bup) Negati ve Not Available In-Office Order Internal Use Only DO Not Attach Compendium DO Not Attach Compendium, Do Not Delete/merge, 11/09/2024 12:30:07 11/09/19 25 11/09/2024 drug scree n, urine Oxycodone (Oxy) Negati ve Not Available In-Office Order Internal Use Only DO Not Attach Compendium DO Not Attach Compendium, Do Not Delete/merge, 11/09/2024 12:30:07 11/09/19 25 11/09/2024 drug scree n, urine Barbiturates (Bar) Negati ve Not Available In-Office Order Internal Use Only DO Not Attach Compendium DO Not Attach Compendium, Do Not Delete/merge, 11/09/2024 12:30:07 11/09/19 25 11/09/2024 drug scree n, urine MDMA (Ecstacy) Negati ve Not Available In-Office Order Internal Use Only DO Not Attach Compendium DO Not Attach Compendium, Do Not Delete/merge, 11/09/2024 12:30:07 11/09/19 25 11/09/2024 drug scree n, urine Amphetamines (Amp) Negati ve Not Available In-Office Order Internal Use Only DO Not Attach Compendium DO Not Attach Compendium, Do Not Delete/merge, 11/09/2024 12:30:07 11/09/19 25 11/09/2024 drug scree n, urine Opiates (opi) Negati ve Not Available In-Office Order Internal Use Only DO Not Attach Compendium DO Not Attach Compendium, Do Not Delete/merge, 11/09/2024 12:30:07 11/09/19 25 11/09/2024 drug scree n, urine Phencyclidin e (Pcp) Negati ve Not Available In-Office Order Internal Use Only DO Not Attach Compendium DO Not Attach Compendium, Do Not Delete/merge, 11/09/2024 12:30:07 11/09/19 25 11/09/2024 drug scree n, urine Tricyclic Antidepressa nts Invali d Not Available In-Office Order Internal Use Only DO Not Attach Compendium DO Not Attach Compendium, Do Not Delete/merge, 11/09/2024 12:30:07 11/09/19 25 11/09/2024 drug scree n, urine Fentanyl Negati ve Not Available In-Office Order Internal Use Only DO Not Attach Compendium DO Not Attach Compendium, Do Not Delete/merge, 11/09/2024 12:30:07 11/09/19 25 11/09/2024 HbA1c (hemo globi n A1c), blood HbA1c 5.8 Not Available In-Office Order Internal Use Only DO Not Attach Compendium DO Not Attach Compendium, Do Not Delete/merge, 11/09/2024 12:27:58 02/21/20 23 02/11/2023 XR, chest No observ ation [facility] ed[facility] [address] [facility], [place], [address], 02/20/2023 15:08:52 04/15/20 23 04/15/2023 XR, ribs, unila teral , w/ PA chest No observ ation record ed. [facility] [address] [place], [address], 04/16/2023 12:00:07 02/24/20 24 02/18/2024 elect romyo gram + nerve condu ction study No observ ation record ed. [facility] [address], [address], 02/24/2024 13:14:13 Result Notes None recorded. Problems Name Problem SNOMED Code Status Onset Date Resolution Date Notes Provider Name and Address Organization Details Recorded Time Tobacco dependence syndrome 55255912 Active 2019 Flavio Franklin MD Attn: Accounting, [address] [place], [address], [facility] 0 14:42:35 Hypercholest erolemia 31437494 Active 2019 Flavio Franklin MD Attn: Accounting, [address] [place], [address], [facility] 0 14:42:36 Gastroesopha geal reflux disease without esophagitis 639184660 Active 2019 Flavio Franklin MD Attn: Accounting, [address] [place], [address], [facility] 0 14:42:38 History of glaucoma 288688218 Active 2019 Flavio Franklin MD Attn: Accounting, [address] [place], [address], [facility] 0 14:43:48 Problem Notes None recorded. Procedures Surgical History None recorded. Imaging Results Imaging Date Name Status LastModified by Organization Details LastModified Time 02/11/2023 XR, chest completed [facility] [address] [place], [address], 02/20/2023 15:08:52 04/15/2023 XR, ribs, unilateral, w/ PA chest completed [facility] [address] , [place], [address], 04/16/2023 12:00:07 02/18/2024 electromyogram + nerve conduction study completed [facility] [address] [place], [address], 02/24/2024 13:14:13 Procedure Notes None recorded. Medical Equipment None Reported. Allergies No known drug allergies Medications Name Sig Start Date Stop Date Status Note LastModified by Organization Details LastModified Time latanoprost 0.005 % eye drops INSTILL 1 DROP INTO EACH EYE AT BEDTIME DIRECTED active Not Available Not Available No t Available azithromyci n 250 mg tablet TAKE 2 TABLETS BY MOUTH ON DAY 1, AND THEN TAKE 1 TABLET BY MOUTH ONCE A DAY ON DAY 2 THROUGH DAY 5 02/20 completed Not Available Not Available Not Available hydrocodone 5 mg-acetamin ophen 325 mg tablet TAKE 1 TO 2 TABLETS BY MOUTH EVERY 4 HOURS NEEDED FOR PAIN 11/09 completed Not Available Not Available Not Available lovastatin 10 mg tablet TAKE 1 TABLET BY MOUTH ONCE DAILY WITH EVENING MEAL 2024 active Not Available Not Available Not Avai lable tramadol 50 mg tablet Take 1 tablet every 12 hours by oral route for 30 days. 2024 active Not Available Not Available Not Avai lable triamcinolo ne acetonide 0.1 % topical cream APPLY TOPICALLY TO THE AFFECTED AREA TWICE DAILY FOR 1 MONTH TO ARMS. 11/09 completed Not Available Not Available Not Available famotidine 20 mg tablet Take 1 tablet twice a day by oral route as needed. 04/04 completed Not Available Not Available Not Available cimetidine 200 mg tablet Take 1 tablet twice a day by oral route as needed. 02/20 completed Not Available Not Available Not Available doxycycline monohydrate 100 mg capsule TAKE 1 CAPSULE BY MOUTH TWICE DAILY FOR 7 DAYS 02/20 completed Not Available Not Available Not Available omeprazole 20 mg capsule,del ayed release TAKE 1 CAPSULE BY MOUTH ONCE DAILY 2024 active Not Available Not Available Not Avai lable methylpredn isolone 4 mg tablets in a dose pack TAKE BY MOUTH DIRECTED ON INSIDE OF PACKAGE 03/06 completed Not Available Not Available Not Available timolol maleate 0.5 % eye drops INSTILL 1 DROP INTO EACH EYE TWICE DAILY DIRECTED active Not Available Not Available No t Available ketoconazol e 2 % topical cream APPLY CREAM TOPICALLY TO ARMS TWICE DAILY FOR 30 DAYS 11/09 completed Not Available Not Available Not Available naproxen 500 mg tablet TAKE 1 TABLET BY MOUTH TWICE DAILY 11/09 completed Not Available Not Available Not Available Vitals Date Recorded Body height Body mass index (BMI) Body weight Oxygen saturation Oxygen saturation in Arterial blood by Pulse oximetry Heart rate Systolic blood pressure Diastolic blood pressure Provider Name and Address Organization Details Last Updated DateTime 3 172.72 cm 31.8 kg/m2 50701.8 1 g 95 % 95 % 57 /min 147 mm[Hg] 85 mm[Hg] Carolin Clifford MA [facility] 3 14:16:57 Date Recorded Body height Body mass index (BMI) Body weight Respiratory rate Systolic blood pressure Diastolic blood pressure Provider Name and Address Organization Details Last Updated DateTime 3 172.72 cm 31.1 kg/m2 36348 g 16 /min 126 mm[Hg] 62 mm[Hg] Martine Demarco MA [facility] 3 15:09:42 Date Recorded Body height Body mass index (BMI) Body weight Oxygen saturation Oxygen saturation in Arterial blood by Pulse oximetry Heart rate Systolic blood pressure Diastolic blood pressure Provider Name and Address Organization Details Last Updated DateTime 3 172.72 cm 30.9 kg/m2 46907.2 5 g 98 % 98 % 54 /min 150 mm[Hg] 79 mm[Hg] Carolin Clifford MA [facility] 3 14:46:07 Date Recorded Body height Body mass index (BMI) Body weight Heart rate Oxygen saturation Oxygen saturation in Arterial blood by Pulse oximetry Systolic blood pressure Diastolic blood pressure Provider Name and Address Organization Details Last Updated DateTime 4 172.72 cm 32.9 kg/m2 99875.3 5 g 60 /min 94 % 94 % 120 mm[Hg] 88 mm[Hg] Georgette Vargas MA [facility] 4 11:40:15 Date Recorded Body height Body mass index (BMI) Body weight Oxygen saturation Oxygen saturation in Arterial blood by Pulse oximetry Heart rate Systolic blood pressure Diastolic blood pressure Provider Name and Address Organization Details Last Updated DateTime 5 172.72 cm 33.6 kg/m2 109261. 91 g 95 % 95 % 55 /min 140 mm[Hg] 70 mm[Hg] Carolin Clifford MA [facility] 5 12:14:50 Social History Question Answer Notes LastModified by Organizat ion Details LastModified Time Tobacco Smoking Status Current Every Day Smoker ORLANDO Berger, [facility] 03/29/2020 12:27:47 What Is Your Level Of Alcohol Consumption? Occasional Information not available 03/29/2020 Are You Blind Or Do You Have Difficulty Seeing? No Information not available 03/06/2023 What Is Your Level Of Caffeine Consumption? Moderate Information not available 02/20/2023 In The 14 Days Before Symptom Onset, Have You Had Close Contact With A Laboratory-confir med COVID-19 While That Case Was Ill? No Information not available 03/06/2023 In The 14 Days Before Symptom Onset, Have You Had Close Contact With A Person Who Is Under Investigation For COVID-19 While That Person Was Ill? No Information not available 03/06/2023 Have You Been To An Area Known To Be High Risk For COVID-19? No Information not available 03/06/2023 Are You Currently Employed? Yes Information not available 02/20/2023 Are You Deaf Or Do You Have Serious Difficulty Hearing? No Information not available 03/06/2023 What Type Of Diet Are You Following? REGULAR Information not available 02/20/2023 Do You Or Have You Ever Used E-cigarettes Or Vape? Never Used Electronic Cigarettes Information not available 03/29/2020 What Is Your Occupation? [employer] Information not available 02/20/2023 Marital Status Informatio n not available 03/29/2020 What Was The Date Of Your Most Recent Tobacco Screening? 11/09/2024 Information not available 11/09/2024 What Is Your Relationship Status? Information not available 02/20/2023 Are You Sexually Active? No Information not available 03/06/2023 Do You Have Smoke And Carbon Monoxide Detectors In Your Home? Yes Information not available 02/20/2023 At What Age Did You Start Smoking Tobacco? 14 Information not available 03/29/2020 Are You Passively Exposed To Smoke? Yes Information no t available 02/20/2023 Do You Or Have You Ever Used Smokeless Tobacco? Never Used Smokeless Tobacco Information not available 03/29/2020 How Much Tobacco Do You Smoke? 1 PPD Information not available 03/29/2020 Do You Feel Stressed (tense, Restless, Nervous, Or Anxious, Or Unable To Sleep At Night)? [id number] Information not available 02/20/2023 Do You Use Any Illicit Or Recreational Drugs? Yes Marjuiana Information not available 02/20/2023 Has Tobacco Cessation Counseling Been Provided? Yes Information not available 02/20/2023 On What Date Was Tobacco Cessation Counseling Provided? 11/09/2024 Information not available 11/09/2024 How Many Years Have You Smoked Tobacco? 50 Information not available 03/29/2020 Do You Or Have You Ever Used Any Other Forms Of Tobacco Or Nicotine? No Information not available 02/20/2023 Sex: Male Functional Status Question Answer Note LastModified by Organization D etails LastModified Time Are you able to care for yourself? Yes Information n ot available 03/06/2023 Mental Status None recorded. Family History Relationship Description Onset Age of this Age Resolved Age Notes LastModified by Organization Details LastModified Time Father Malignant tumor of lung ssuthan Not available 2019 14:37:03 Mother Dementia ssuthan Not available 03/29/2020 14:37:13 Medical History Condition Response Coronary Artery Disease N Other N High Blood Pressure N Atrial Fibrillation N Thyroid Problems N Kidney or Bladder Problems N GI Problems N Depression N COPD N Blood Clots N Skin Problems Y Eating Disorder N Anemia N Heart Attack ([place]) N Anxiety Disorder N Diabetes N Muscle, Joint, or Bone Problems N Seizures/Epilepsy N Acid Reflux (GERD) N Cancer Y Stroke N Asthma N Allergies N ADHD N Substance Abuse N High Cholesterol Y Hepatitis N Liver Disease N Schizophrenia N Headaches N Heart Failure N Osteoporosis N Past Encounters Encounter ID Performer Location Encounter Start Date Encounter Closed Date Diagnosis/Indication Diagnosis SNOMED-CT Code Diagnosis ICD10 Code Diagnosis Note [id number] Flavio Franklin MD [address] [facility] [address] [place] [address] 03/29/2020 09:07:00 03/30/2020 10:48:57 Hypercholesterolemia 17760846 E78.00 Per the pt on lovastatin 10mg dailylow cholestrol diet.pt will be f/u with usual PCP as before,. Mass of ce ntral portion of left breast 9821909155 53024 N63.20 L/nipple area per the pt. Had imaging, no report.adelaida londono forward the report from his PCPAddendu jhonathanport received, Will refer to surgeon as suggested Tobacco de pendence syndrome 14093983 F17.200 Recommend to slow jose juan and quit at the earliest- 1 PPD Gastroesop hageal reflux disease without esophagitis 517557026 K21.9 Loose weight , avoid soda, spicy stuff, Stop smokingUse medication as prescribed . History of glaucoma 1614 75603 Z86.69 Under care by the ophthalmol ogist. [id number] MALAIKA Pereira [facility] [address] [place] [address] 02/20/2023 13:46:08 02/21/2023 14:51:22 Acute bronchitis with bronchospasm 49260477 J20.8 Mixed hyperlipidemia 267 340843 E78.2 Former hea vy tobacco smoker 5191869140 31261 Z87.891 Overweight 126539646 E66 .3 Near syncope 476002596 R 55 [id number] MALAIKA Pereira [address] [place] [address] 03/06/2023 14:55:15 03/12/2023 12:27:25 Acute bronchitis with bronchospasm 78369218 J20.8 Screening for malignant neoplasm of prostate 763038188 Z12.5 [id number] Thien Arzate PA-C [facility] [address] [place] [address] 04/08/2023 14:26:16 04/09/2023 12:32:23 Rib pain 242810042 R07.81 [id number] Thien Arzate PA-C [facility] [address] [place] [address] 01/15/2024 11:29:45 01/23/2024 12:10:55 Carpal tunnel syndrome of left wrist 9180791337 63360 G56.02 [id number] Carolin Clifford MA [facility] [address] [place] [address] 11/09/2024 11:49:54 11/10/2024 17:15:30 Mixed hyperlipidemia 463687278 E78.2 Gastroesop hageal reflux disease without esophagitis 591224320 K21.9 Osteoarthr itis of multiple joints 272697954 M15.0 Overweight 357993791 E66 .3 Screening for malignant neoplasm of prostate 703476744 Z12.5 Long-term drug therapy 212677197 Z79.891 Health Concerns Section Related Observation LastModified by Organization Detai ls LastModified Time None Recorded Concern Status LastModified by Organization Details LastModified Time None Recorded Advance Directives Directive None Recorded Payers Encounter Date Sequence Insurance Name Policy Number Policy Jovel Covered Member ID Jovel Member ID Guarantor Name 02/20/2023 1 [facility] (MEDICARE REPLACEMENT/A DVANTAGE - HMO) [id number] Rikki Fisher [id number] Rikki Fisher 03/06/2023 1 [facility] (MEDICARE REPLACEMENT/A DVANTAGE - HMO) [id number] Rikki Fisher [id number] Rikki Fisher 04/08/2023 1 [facility] (MEDICARE REPLACEMENT/A DVANTAGE - HMO) [id number] Rikki Fisher [id number] Rikki Fisher 01/15/2024 1 [facility] (MEDICARE REPLACEMENT/A DVANTAGE - HMO) [id number] Rikki Fisher [id number] Rikki Fisher 11/09/2024 1 [facility] (MEDICARE REPLACEMENT/A DVANTAGE - HMO) [id number] Rikki Fisher [id number] Rikki Natalia Notes Date Note Type Note Provider Name and Address Organization Details Recorded Time 02/20/2023 text/html new patient...tory hough came from ER...was told no pneumonia but inflammation in lower left lung...cough..head stopped up...no fever..1-2 weeks ago...feeling no better still coughing....has smoked for years...has a hx of racing heart rates and near syncope... Thien Arzate PA-C Attn: [address] [place], [place], [address] [place] [address], [facility] 02/20/2023 14:53:36 03/06/2023 text/html feeling much better...sees cardiology tomorrow... Thien Arzate PA-C Attn: [address] [place], [place], [address] [place] [address], [facility] 03/06/2023 15:32:58 04/08/2023 text/html felt a rib pop bending over a bathtub...can we xray Thien Arzate PA-C Attn: [address] [place], [address], [facility] - [facility] 04/08/2023 15:06:54 01/15/2024 text/html left hand thinks he has carpal tunnel...has had previous surgey for this on rt hand...reports previous hx of 3-4 pack per day cigs... Thien Arzate PA-C Attn: [address] [place], [address], [place] - [facility] 01/15/2024 11:58:53 11/09/2024 text/html 6 month vs meds..hyperlipidem ia ... all is well except for arthritis in hands and wrists.. Carolin Clifford MA [facility], [place] - [facility] 11/09/2024 12:55:10
--- OUTSIDE RECORDS SUMMARY | 2024-12-03 11:40 | XMS_ITS | Clinical Summary ---
Author Organization [address] Address [address] [place] [address] Care Team Providers Care Detective Homicide Squad Name Role Phone Manny Arzate Primary Care Provider [phone] Edy Naylor MD Unavailable [phone] Allergies No known active allergies Medications latanoprost (XALATAN) 0.005 % ophthalmic solution INSTILL 1 DROP INTO EACH EYE AT BEDTIME DIRECTED 03/18/2020 Active lovastatin (MEVACOR) 10 mg tablet TAKE 1 TABLET BY MOUTH ONCE DAILY WITH EVENING MEAL 02/29/2020 Active timolol (TIMOPTIC) 0.5 % ophthalmic solution INSTILL 1 DROP INTO EACH EYE TWICE DAILY DIRECTED 04/04/2020 Active multivit-mins/i abhay/folic/lycop (CENTRUM ULTRA MEN'S ORAL) Take by mouth daily Active cholecalciferol 25 mcg (1,000 unit) tablet Take 1 tablet (1,000 Units total) by mouth daily Active ascorbic acid (vitamin C) 1,000 mg tablet Take 1 tablet (1,000 mg total) by mouth daily Active zinc gluconate 50 mg tablet Take 1 tablet (50 mg total) by mouth daily Active HYDROcodone-reinier taminophen (NORCO) 5-325 mg per tabletIndicatio ns:Pain Take 1-2 tablets by mouth every 4 (four) hours as needed for pain 10 tablet 06/12/2024 Active Active Problems Problem Noted Date Diagnosed Date Chest pain 09/03/2023 Near syncope 03/06/2023 Bradycardia 03/06/2023 Gynecomastia, male 04/27/2020 Overview (04/27/2020): Added automatically from request for surgery [id number] Gastroesophageal reflux disease without esophagi tis 03/29/2020 Tobacco dependence syndrome 03/29/2020 Encounter for postoperative care 01/26/2019 Hx of basal cell carcinoma excision 01/26/2019 Mixed hyperlipidemia 01/12/2019 Benign prostatic hyperplasia without lower urinary tract symptoms 01/12/2019 Heartburn 01/12/2019 Melena 01/12/2019 Other nonspecific abnormal finding of lung field 01/12/2019 Resolved Problems Problem Noted Date Diagnosed Date Resolved Date Carpal tunnel syndrome, left 06/04/2024 06/24/2024 Carpal tunnel syndrome, left upper limb 02/24/2024 06/24/2024 Surgical History Surgery Date Site/Laterality Comments CARPAL TUNNEL RELEASE Right TESTICLE SURGERY BREAST LUMPECTOMY Left SKIN CANCER EXCISION Medical History Medical History Date Comments Elevated cholesterol GERD (gastroesophageal reflux disease) Motion sickness Cancer (HCC) Basal and [place] us cell skin cancer Family History Medical History Relation Name Comments Cancer Father Cancer Mother Relation Name Status Comments Father Mother Social History Tobacco Use Types Packs/Day Years Used Date Smoking Tobacco: Every Day Cigarettes Smokeless Tobacco: Never Tobacco Cessation:Ready to Q uit: Not Asked; Counseling Given: Not Answered Alcohol Use Standard Drinks/Week Comments Yes 0 (1 standard drink = 0.6 oz pur e alcohol) rarely AUDIT-C Answer Date Recorded Q1: How often do you have a drink containing alc ohol? 2-4 times a month 06/04/2024 Q2: How many drinks containi ng alcohol do you have on a typical day when you are drinking? 1 or 2 06/04/2024 Frequency of Binge Drinking Not on file 05/24 Personal Safety Answer Date Recorded Have you ever been in or are you currently in a harmful physical or emotional relationship or is someone making you feel afraid or unsafe? Denies 06/12/2024 Sex and Gender Information Value Date Recorded Sex Assigned at Not on file Legal Sex Male 12:13 PM CDT Gender Identity Not on file Sexual Orientation Not on file Obstetrics History Last Filed Vital Signs Vital Sign Reading Time Taken Comments Blood Pressure 176/82 06/25/2024 9:01 AM CDT Pulse 55 06/25/2024 9:01 AM CDT Temperature 36.5 C (97.7 F) 06/12/2024 8:02 AM CDT Respiratory Rate 18 06/12/2024 8:02 AM CDT Oxygen Saturation 99% 06/12/2024 8:02 AM CDT Inhaled Oxygen Concentration - - Weight 96.6 kg (213 lb) 06/25/2024 9:01 AM CDT Height 172.7 cm (5' 8 ) 06/25/2024 9:01 AM CDT Body Mass Index 32.39 06/25/2024 9:01 AM CDT Plan of Treatment Health Maintenance Due Date Last Done Comments Colon Cancer Screening-Colonoscopy 1950 Depression Screening 1950 Hepatitis C Screening 1950 DTaP/Tdap/Td Vaccine (1 - Tdap) 1961 Hepatitis B Screening 1968 Pneumococcal vaccine 65+ (1 of 2 - PCV) 1969 Zoster Vaccine (1 of 2) 2000 Abdominal Aortic Aneurysm (AAA) Screen 2015 Well Visit 65+ 2015 Influenza Vaccine (#1) 2024 Fall Risk Assessment 06/12/2025 06/12/2024 Insurance [facility] MEDICARE MEDICARE [facility] MEDICARE [employer] Care Teams Detective Homicide Squad Relationship Specialty Start Date End Date Manny Arzate PA [address] [place] [address] PCP - General Family Practice 02/06/24 Edy Naylor MD [address] [facility] [place] [address] Surgeon Orthopedic Surgery 06/12/24
--- OUTSIDE RECORDS SUMMARY | 2024-12-03 11:40 | XMS_ITS | Referral Summary ---
Author Organization [address] Address [address] [place] [address] Care Team Providers Care Administrative Staff Supervisor Name Role Phone Manny Arzate Primary Care Provider [phone] Edy Naylor MD Unavailable [phone] Allergies No known active allergies Medications latanoprost [...] (04/27/2020): Added automatically from request for surgery [id number] Gastroesophageal reflux disease without esophagi tis 03/29/2020 [...] tunnel syndrome, left upper limb 02/24/2024 06/24/2024 Social History Tobacco Use Types Packs/Day Years [...] on file Sexual Orientation Not on file Last Filed Vital Signs Vital Sign Reading [...] 06/25/2024 9:01 AM CDT Plan of Treatment Not on file Insurance [facility] MEDICARE [facility] MEDICARE Address: [facility] [address] [place] [address] MEDICARE [facility] MEDICARE Address: [address] [address] [place] [address] MEDICARE [employer] [facility] MEDIC[facility] Address: [facility] [address] [place] [address] Care Teams Administrative Staff Supervisor Relationship Specialty Start Date End Date Manny Arzate PA [address] [place] [address] PCP - General Family Practice 02/06/24 Edy Naylor MD [address] [place] [address] [address] [place] [address] Surgeon Orthopedic Surgery 06/12/24
--- OUTSIDE RECORDS SUMMARY | 2024-12-03 11:40 | XMS_ITS | Clinical Summary ---
Author Organization [facility] Address [address] [place] [address] Care Team Providers Care Municipal [address] Magistrate Name Role Phone Marcelino Vogt MD Primary Care Provider [phone] Allergies No known active allergies Medications lovastatin 10 MG tablet Take 10 mg by mouth nightly at bedtime. Active latanoprost 0.005 % ophthalmic solution INT 1 GTT IN OU QPM 2 02/20/2018 Active timolol 0.5 % ophthalmic solution INT 1 GTT INTO OU BID 0 08/26/2018 Active Active Problems Problem Noted Date Diagnosed Date Hx of basal cell carcinoma excision 01/26/2019 Encounter for postoperative care 01/26/2019 Mixed hyperlipidemia 01/12/2019 Melena 01/12/2019 Heartburn 01/12/2019 Other nonspecific abnormal finding of lung field 01/12/2019 Benign prostatic hyperplasia without lower urinary tract symptoms 01/12/2019 Resolved Problems Problem Noted Date Diagnosed Date Resolved Date Basal cell carcinoma of skin of trunk 01/12/2019 01/26/2019 Family History Medical History Relation Comments Cancer Father Asthma Mother Cancer Mother Relation Status Comments Father Mother Social History Tobacco Use Types Packs/Day Years Used Date Smoking Tobacco: Every Day Cigarettes Smokeless Tobacco: Never Tobacco Cessation:Ready to Q uit: No; Counseling Given: No Alcohol Use Standard Drinks/Week Comments Yes 0 (1 standard drink = 0.6 oz pur e alcohol) hx of alcoholism AUDIT-C Answer Date Recorded Frequency of Alcohol Consumption 2-4 times a mon th 01/13/2019 Average Number of Drinks Not on file 019 Frequency of Binge Drinking Not on file 12/23 Sex and Gender Information Value Date Recorded Sex Assigned at Male 01/12/2019 11:24 AM CDT Legal Sex Male 1:41 PM [employer] Gender Identity Male 01/12/2019 11:24 AM CDT Sexual Orientation Not on file Last Filed Vital Signs Vital Sign Reading Time Taken Comments Blood Pressure 156/92 01/27/2019 9:48 AM CDT Pulse 57 01/27/2019 9:48 AM CDT Temperature 36.3 C (97.3 F) 01/27/2019 9:48 AM CDT Respiratory Rate - - Oxygen Saturation 97% 09/08/2018 3:18 PM POWER HOUSE [employer]ER Inhaled Oxygen Concentration - - Weight 105.7 kg (233 lb) 01/27/2019 9:48 AM CDT Height 173.4 cm (5' 8.25 ) 01/27/2019 9:48 AM CD T Body Mass Index 35.17 01/27/2019 9:48 AM CDT Plan of Treatment Health Maintenance Due Date Last Done Comments Colorectal Cancer Screening Colonoscopy (10 Years) 1950 Pneumococcal Vaccine: 65+ Ye ars (1 of 2 - PCV) 1956 Hepatitis C 1968 DTaP, Tdap and Td Vaccines ( 1 - Tdap) 1969 Zoster Vaccines (1 of 2) 2000 Annual Medicare Wellness Visit 2015 COVID-19 Vaccine (1 - 2023-2 5 season) 2024 Influenza Adult (#1) 2024 RSV Immunization or 60+ Years (1 - 1-dose 75+ series) 2025 Meningococcal B Vaccine Aged Out No l onger eligible based on patient's age to complete this topic Meningococcal Vaccine Aged Out No rah kaci eligible based on patient's age to complete this topic RSV Immunizations Under 20 Months Aged Out No longer eligible based on patient's age to complete this topic Insurance [employer] Care Teams Municipal Court Magistrate Relationship Specialty Start Date End Date Marcelino Vogt MD [address] [place] [address] PCP - General FAMILY PRACTICE 01/12/19
== END 2024-12-03 10:06 | disposition home or self-care (01) ==
LOC: CHSLAB 10:07
PROVIDERS: PCP Physician Assistant; Visit Provider Specialist
DX: C44.629 Squamous cell carcinoma of skin of left upper limb, including shoulder (principal); C44.01 Basal cell carcinoma of skin of lip
CPT/HCPCS: 88305

== ENCOUNTER 2025-08-31 01:48 | Day surgery (SDC) | payer MEDICARE, SELFPAY ==
[2025-08-09 13:19] VITALS: BMI 31.6
[2025-08-31 11:44] VITALS: BP 180/82; PULSE 57; RESP 19; TEMP 36.3; O2SAT 97
--- NOTE | 2025-08-31 11:52 | WPDANESEPPF ---
Anes - Initial Pre Proc Eval Procedure: Operation Date: 08/31/25 13:00 Proposed Procedures p Screening Colonoscopy - Omar Ramos MD Date/Time: 08/31/25 11:52 Surgeon: Omar Ramos MD Pre Op Diagnosis: Personal history of colon polyps, unspecified Patient Data Age: 74 Gender: M Height: 1.78 m Weight: 98.3 kg Last Vital Signs Temp 36.3 C L 08/31/25 11:44 Pulse 57 L 08/31/25 11:44 Resp 19 08/31/25 11:44 BP 180/82 H 08/31/25 11:44 Pulse Ox 97 08/31/25 11:44 O2 Del Method Room Air 08/31/25 11:44 Allergies Allergy/AdvReac Type Severity Reaction Status Date / Time No Known Allergies Allergy Verified 08/31/25 11:43 Home Medications ?Medication ?Instructions ?Recorded ?Confirmed ?Type latanoprost 0.005 % eye drops 1 drp EACH EYE DAILY 02/15/22 08/09/25 History (Xalatan) lovastatin 10 mg tablet 10 mg PO DAILY 02/15/22 08/31/25 History timolol maleate 0.5 % eye drops 1 drp EACH EYE Q12H 02/15/22 08/09/25 History omeprazole 20 mg capsule,delayed 20 mg PO DAILY #30 caps 07/05/22 08/31/25 Rx release sodium chloride 2 % eye drops 1 drp EACH EYE TID 08/09/25 08/09/25 History (Riley 128) Patient hx anesthesia problems: none Family hx anesthesia problems: none Results Review: All pre-operative results and documents have been reviewed as part of the pre-operative evaluation. [facility] Past Medical History Medical History Constipation Arthritis Basal cell carcinoma of skin Glaucoma Benign tumor of breast Obesity Fracture, ankle Hyperlipemia Social History Social History Smoking packs per day: 1.5 Smoking cigarettes per day: 30.0 Years smoked: 60 Smoking pack-years: 90.00 Smoking status: Current every day smoker Tobacco type: cigarettes Alcohol intake: current Drinks per week: 2 Alcohol use details: rarely Substance use: never Substance use type: does not use Living arrangements: with family Spiritual care concerns: No Anes - Eval Final PreProcedure Day of Procedure 08/31/25 11:52 Patient weight: obese Heart: regular rate and rhythm Lungs: clear to auscultation Airway: Mallampati scale class II Neurological: alert and oriented Last oral intake: >/= 8 hours ASA classification: III Emergent: no Anesthetic plan: proceed Anesthesia type and monitoring: general GIVS and standard monitoring Results Review: All pre-operative results and documents have been reviewed as part of the pre-operative evaluation. Informed Consent: The patient's anesthetic plan and its attendant risks and benefits were discussed with the patient/family/POA. Questions were solicited and answers provided to the satisfaction of the patient/family/POA.
[2025-08-31] MEDS: LACTATED RINGERS 1,000 ML 150 ML IV CONT (11:53)
--- NOTE | 2025-08-31 12:45 | PM.HPGS ---
History of Present Illness History of Present Illness Consent: Risks, benefits, and alternatives have been discussed and questions answered. Patient agrees to proceed with procedure. Chief complaint: Personal history of colon polyps, unspecified Narrative: Rikki Fisher is a 74 year old male with colon polyp in 2021 Review of Systems Review of Systems: All systems reviewed & are unremarkable except as noted in HPI and below PMFSH Past Medical History Medical History (Updated 08/31/25 @ 12:46 by Omar Ramos MD) Colon polyp Constipation Arthritis Basal cell carcinoma of skin Glaucoma Benign tumor of breast Obesity Fracture, ankle Hyperlipemia Social History Social History Smoking packs per day: 1.5 Smoking cigarettes per day: 30.0 Years smoked: 60 Smoking pack-years: 90.00 Smoking status: Current every day smoker Tobacco type: cigarettes Alcohol intake: current Drinks per week: 2 Alcohol use details: rarely Substance use: never Substance use type: does not use Living arrangements: with family Spiritual care concerns: No Meds Home Medications and Allergies Home Medications ?Medication ?Instructions ?Recorded ?Confirmed ?Type latanoprost 0.005 % eye drops 1 drp EACH EYE DAILY 02/15/22 08/09/25 History (Xalatan) lovastatin 10 mg tablet 10 mg PO DAILY 02/15/22 08/31/25 History timolol maleate 0.5 % eye drops 1 drp EACH EYE Q12H 02/15/22 08/09/25 History omeprazole 20 mg capsule,delayed 20 mg PO DAILY #30 caps 07/05/22 08/31/25 Rx release sodium chloride 2 % eye drops 1 drp EACH EYE TID 08/09/25 08/09/25 History (Riley 128) Allergies Allergy/AdvReac Type Severity Reaction Status Date / Time No Known Allergies Allergy Verified 08/31/25 11:43 Vital Signs Vital Signs - 24 hr 08/31/25 11:44 Temperature 97.3 F L Pulse Rate 57 L Respiratory Rate 19 Blood Pressure 180/82 H Pulse Oximetry 97 Oxygen Delivery Room Air Exam Const: General: comfortable and no acute distress HENMT: Face/Nose/Sinus: Normal nares present Eyes: General: appearance normal, both eyes and all related structures Neck: Neck: no JVD Resp: Auscultation: clear to auscultation bilaterally Cardio: Rate: regular rate Rhythm: regular rhythm GI: Inspection: non-distended GI Palp: Yes Soft to palpation Skin: General skin exam: normal color Extrem: General: normal to inspection Psych: Mental Status: mental status grossly normal Assessment and Plan Assessment and plan (1) Colon polyp: Code(s): K63.5 - Polyp of colon Status: Acute Assessment and Plan: colonoscopy
--- NOTE | 2025-08-31 13:06 | S_PTH ---
PATIENT: Rikki Fisher LOC: [facility] [employer]#:[id number] AGE/SX: 74/M ROOM: RE08/31/[address]: Omar Ramos MD : 1950 BED: DIS: 08/31/2025 SPEC #: [id number] RECD: 08/31/25 14:42 STATUS: EMY REFlorencio #: [id number] HAY: 08/31/25 13:[address]: Omar Ramos DEPT: [facility] Surgical RECD BY: Keshia Marcial MLT, ([facility]) ENTERED: 08/31/25 14:42 SP TYPE: Surgical OTHR DR: Manny Arzate, PA Tissues: A - Colon Polypectomy B - Colon Polypectomy Procedures: Hematoxylin and Eosin Stain Gross and Microscopic Level 4
[2025-08-31 13:08] VITALS: BP 146/57; PULSE 57; RESP 17; O2SAT 96
[2025-08-31 13:18] VITALS: BP 137/67; PULSE 60; RESP 18; O2SAT 99
[2025-08-31 13:28] VITALS: BP 145/80; PULSE 60; RESP 20; O2SAT 100
== END 2025-08-31 13:38 | disposition home or self-care (01) ==
PROVIDERS: PCP Physician Assistant; Referring Provider Internal Medicine Gastroenterology; Visit Provider Internal Medicine Gastroenterology
PROC: 0DJD8ZZ Inspection of Lower Intestinal Tract, Via Natural or Artificial Opening Endoscopic (ICD-10-PCS; CPT 45378; principal; 2025-08-31 13:00)
DX: Z12.11 Encounter for screening for malignant neoplasm of colon (principal); D12.3 Benign neoplasm of transverse colon; D12.5 Benign neoplasm of sigmoid colon; K64.8 Other hemorrhoids; K57.30 Diverticulosis of large intestine without perforation or abscess without bleeding; E78.5 Hyperlipidemia, unspecified; M19.90 Unspecified osteoarthritis, unspecified site; F17.210 Nicotine dependence, cigarettes, uncomplicated; E66.9 Obesity, unspecified; Z68.31 Body mass index [BMI] 31.0-31.9, adult; Z85.828 Personal history of other malignant neoplasm of skin
CPT/HCPCS: 45385; 88305; J2003; J2704; J7120